=== PATIENT | male | born 1970 | race African-American/Black ===

== ENCOUNTER 2019-02-24 11:03 | Emergency (ER) | payer OTHER ==
[~2019-02-24] VITALS: Ht 172.7 cm; Wt 81.2 kg
[~2019-02-24 11:03] MED LIST: FLOMAX PO; IMODIUM A-D2 MG PO; KETO10TA2 PO; MOTRIN800 MG PO; ORPH100T PO; PEPCID40 MG PO; TOBREX5 ML OP; ZOFRAN4 MG PO
== END 2019-02-24 14:24 | disposition home or self-care (01) ==
LOC: ER 11:03
DX: M54.5 Low back pain (principal)

== ENCOUNTER 2019-02-27 09:39 | Emergency (ER) | payer OTHER ==
[~2019-02-27] VITALS: Ht 172.7 cm; Wt 81.2 kg
== END 2019-02-27 12:21 | disposition home or self-care (01) ==
LOC: ER 09:39
DX: M54.5 Low back pain (principal)

== ENCOUNTER 2021-02-25 09:42 | Outpatient (CLI) | payer OTHER ==
[2021-04-22] MEDS ORDERED: NEURONTIN300 MG PO (17:40)
[2021-05-04] MEDS ORDERED: NORFLEX100MG PO (17:44)
== END 2021-02-25 13:03 | disposition home or self-care (01) ==
LOC: LAB 09:42
PROVIDERS: ATTEND Internal Medicine Cardiovascular Disease
DX: R05 Cough (principal); R06.2 Wheezing; R50.9 Fever, unspecified

== ENCOUNTER → 2021-03-17 12:06 | Outpatient (CLI) | payer OTHER ==
[~2021-03-17 12:06] MED LIST changes: +NEURONTIN300 MG PO; +NORFLEX100MG PO
== END | disposition home or self-care (01) ==
LOC: LAB 12:06
PROVIDERS: ATTEND Dentist Oral and Maxillofacial Surgery
DX: R05 Cough (principal); Z11.59 Encounter for screening for other viral diseases; Z20.828 Contact with and (suspected) exposure to other viral communicable diseases

== ENCOUNTER 2021-04-20 09:02 | Emergency (ER) | payer OTHER ==
[~2021-04-20] VITALS: Ht 167.6 cm; Wt 82.6 kg
[~2021-04-20 09:02] MED LIST changes: -NEURONTIN300 MG PO; -NORFLEX100MG PO
[2021-04-20] MEDS ORDERED: KETO10TA2 PO (12:09)
[2021-04-20] MEDS ORDERED: NORFLEX100MG PO (12:09)
[2021-04-22] MEDS ORDERED: NEURONTIN300 MG PO (17:40)
[2021-05-04] MEDS ORDERED: NORFLEX100MG PO (17:44)
== END 2021-04-20 13:13 | disposition home or self-care (01) ==
LOC: ER 09:02
DX: M54.5 Low back pain (principal)

== ENCOUNTER 2021-05-27 08:19 | Outpatient (CLI) | payer OTHER ==
[~2021-05-27 08:19] MED LIST changes: +NEURONTIN300 MG PO; +NORFLEX100MG PO
== END 2021-05-27 08:24 | disposition home or self-care (01) ==
LOC: MRI 08:19
PROVIDERS: ATTEND Physical Medicine & Rehabilitation
DX: M51.37 Other intervertebral disc degeneration, lumbosacral region (principal); M54.42 Lumbago with sciatica, left side
CPT/HCPCS: 72148

== ENCOUNTER 2022-03-29 12:19 | Emergency (ER) | payer OTHER ==
[~2022-03-29] VITALS: Ht 172.7 cm; Wt 81.6 kg
[2022-03-29] MEDS ORDERED: NAPROXEN500 MG PO (16:58)
[2022-03-29] MEDS ORDERED: CIPRO500 MG PO (16:58)
== END 2022-03-29 17:27 | disposition home or self-care (01) ==
LOC: ER 12:19
DX: S91.311A Laceration without foreign body, right foot, initial encounter (principal); X58.XXXA Exposure to other specified factors, initial encounter; Y93.9 Activity, unspecified; Y92.9 Unspecified place or not applicable; Y99.9 Unspecified external cause status; Z88.0 Allergy status to penicillin

== ENCOUNTER 2023-04-26 19:10 | Emergency (ER) | payer OTHER ==
[~2023-04-26] VITALS: Ht 172.7 cm; Wt 80.7 kg
[~2023-04-26 19:10] MED LIST changes: +CIPRO500 MG PO; +NAPROXEN500 MG PO
[2023-04-27] MEDS ORDERED: KETO10TA2 PO (02:38)
[2023-04-27] MEDS ORDERED: NORFLEX100MG PO (02:38)
[2023-04-27] MEDS ORDERED: CORTISPORIN EAR10 M1 OPHT (02:41)
== END 2023-04-27 02:57 ==
LOC: ER 19:10
DX: R51.9 Headache, unspecified (principal); Z88.0 Allergy status to penicillin; Z91.013 Allergy to seafood

== ENCOUNTER 2023-05-30 09:44 | Outpatient (CLI) | payer OTHER ==
[~2023-05-30 09:44] MED LIST changes: +CORTISPORIN EAR10 M1 OPHT
== END 2023-05-30 09:46 | disposition home or self-care (01) ==
LOC: LAB 09:44
PROVIDERS: ATTEND Internal Medicine Cardiovascular Disease
DX: E03.8 Other specified hypothyroidism (principal); E11.9 Type 2 diabetes mellitus without complications; E78.00 Pure hypercholesterolemia, unspecified; E78.1 Pure hyperglyceridemia; I10 Essential (primary) hypertension; Z80.1 Family history of malignant neoplasm of trachea, bronchus and lung; Z12.11 Encounter for screening for malignant neoplasm of colon; Z13.1 Encounter for screening for diabetes mellitus

== ENCOUNTER 2023-05-30 10:40 | Outpatient (CLI) | payer OTHER | END 2023-05-30 10:48 | disposition home or self-care (01) | LOC: RAD 10:40 | PROVIDERS: ATTEND Internal Medicine Cardiovascular Disease | DX: J44.9 Chronic obstructive pulmonary disease, unspecified (principal); I10 Essential (primary) hypertension ==

== ENCOUNTER 2023-06-01 09:24 | Outpatient (CLI) | payer OTHER | END 2023-06-01 09:46 | disposition home or self-care (01) | LOC: LAB 09:24 | PROVIDERS: ATTEND Internal Medicine Cardiovascular Disease | DX: E03.8 Other specified hypothyroidism (principal); E11.9 Type 2 diabetes mellitus without complications; E78.1 Pure hyperglyceridemia; I10 Essential (primary) hypertension; Z80.1 Family history of malignant neoplasm of trachea, bronchus and lung; Z12.11 Encounter for screening for malignant neoplasm of colon; E78.00 Pure hypercholesterolemia, unspecified; Z88.0 Allergy status to penicillin; Z91.013 Allergy to seafood ==

== ENCOUNTER 2023-06-25 07:53 | Outpatient (CLI) | payer OTHER | END 2023-06-25 07:54 | disposition home or self-care (01) | LOC: LAB 07:53 | PROVIDERS: ATTEND Internal Medicine Pulmonary Disease | DX: Z20.822 Contact with and (suspected) exposure to COVID-19 (principal); R05.9 Cough, unspecified ==

== ENCOUNTER 2025-04-15 07:51 | Outpatient (CLI) | payer OTHER ==
[2025-04-15 08:29] LABS: BASO % 0.1 % (0.1-1.2); EOS # 0.13 (0.04-0.54); EOS % 1.8 % (0.7-7.0); LYMPH # 2.06 (1.18-3.74); LYMPH % 29.1 % (19.3-53.1); MEAN PLATELET VOLUME 10.10 fl (9.4-12.4); MONO # 0.80 (0.24-0.82); MONO % 11.3 % (4.7-12.5); NEUT # 4.06 (1.56-6.13); NEUT % 57.4 % (34.0-71.1); RED CELL DISTRIBUTION WIDTH 13.2 % (11.6-14.4)
[2025-04-15 09:26] LABS: INR 1.07
[2025-04-15 09:41] LABS: ALT/SGPT 24.0 U/L (12-78); AST/SGOT 15.0 U/L (15-37); BILIRUBIN TOTAL 0.56 mg/dL (0.3-1.2); BUN CREA RATIO 15.0 (7.0-25.0); CHOL HDL RATIO 7.6 (0-5.0); CREATININE SERUM 0.96 mg/dL (0.70-1.30); GFR 81.93; GLOBULINA 3.1 G/DL (2.4-3.5); GLUCOSE FASTING 93.0 mg/dL (65-100); HDL 31.0 mg/dl (40-60); LDL 154.0 mg/dl (0-130); OSMOLALITY SERUM 285.0 MOSM/KG (275-295); TSH 1.76 uIU/mL (0.358-3.74); VLDL 51.0 (0-39)
== END 2025-04-15 07:53 | disposition home or self-care (01) ==
LOC: LAB 07:51
PROVIDERS: ATTEND Internal Medicine
DX: D64.9 Anemia, unspecified (principal); R10.9 Unspecified abdominal pain; E03.9 Hypothyroidism, unspecified; E78.5 Hyperlipidemia, unspecified; E11.9 Type 2 diabetes mellitus without complications; I50.22 Chronic systolic (congestive) heart failure; Z79.01 Long term (current) use of anticoagulants; I10 Essential (primary) hypertension

== ENCOUNTER 2025-06-24 08:19 | Outpatient (CLI) | payer OTHER ==
[2025-06-24 10:03] LABS: BASO % 0.2 % (0.1-1.2); EOS # 0.14 (0.04-0.54); EOS % 1.6 % (0.7-7.0); LYMPH # 1.97 (1.18-3.74); LYMPH % 22.2 % (19.3-53.1); MEAN PLATELET VOLUME 10.50 fl (9.4-12.4); MONO # 1.11 (0.24-0.82); NEUT # 5.62 (1.56-6.13); NEUT % 63.2 % (34.0-71.1); RED CELL DISTRIBUTION WIDTH 13.3 % (11.6-14.4)
[2025-06-24 10:08] LABS: MONO % 12.5 % (4.7-12.5)
[2025-06-24 10:27] LABS: INR 1.01
[2025-06-24 10:58] LABS: ALT/SGPT 48.0 U/L (12-78); AST/SGOT 29.0 U/L (15-37); BILIRUBIN TOTAL 0.52 mg/dL (0.3-1.2); BUN CREA RATIO 15.0 (7.0-25.0); CHOL HDL RATIO 7.2 (0-5.0); CREATININE SERUM 0.88 mg/dL (0.70-1.30); GFR 90.59; GLOBULINA 3.0 G/DL (2.4-3.5); GLUCOSE FASTING 96.0 mg/dL (65-100); HDL 32.0 mg/dl (40-60); LDL 154.0 mg/dl (0-130); OSMOLALITY SERUM 287.0 MOSM/KG (275-295); TSH 1.38 uIU/mL (0.358-3.74); VLDL 44.0 (0-39)
== END 2025-06-24 08:25 | disposition home or self-care (01) ==
LOC: LAB 08:19
PROVIDERS: ATTEND Internal Medicine
DX: D64.9 Anemia, unspecified (principal); R10.9 Unspecified abdominal pain; E03.9 Hypothyroidism, unspecified; E78.5 Hyperlipidemia, unspecified; E11.9 Type 2 diabetes mellitus without complications; I50.22 Chronic systolic (congestive) heart failure; Z79.01 Long term (current) use of anticoagulants; I10 Essential (primary) hypertension

== ENCOUNTER 2025-08-12 07:17 | Outpatient (CLI) | payer OTHER ==
[2025-08-12 08:33] LABS: BUN CREA RATIO 13.0 (7.0-25.0); CREATININE SERUM 0.88 mg/dL (0.70-1.30); GFR 90.59; GLUCOSE FASTING 102.0 mg/dL (65-100); OSMOLALITY SERUM 288.0 MOSM/KG (275-295)
== END 2025-08-12 07:26 | disposition home or self-care (01) ==
LOC: LAB 07:17
PROVIDERS: ATTEND Urology
DX: R36.1 Hematospermia (principal)

== ENCOUNTER 2025-08-23 07:37 | Outpatient (CLI) | payer OTHER | END 2025-08-23 07:40 | disposition home or self-care (01) | LOC: TOM 07:37 | PROVIDERS: ATTEND Urology | DX: R31.0 Gross hematuria (principal) ==